=== PATIENT | female | born 1945 | race African-American/Black ===

== ENCOUNTER → 2018-05-02 | Outpatient (CLI) | payer BC ==
--- NOTE | 2018-05-02 15:26 | KCIC ---
MRI of the lumbar spine without contrast 05/02/2018 CLINICAL HISTORY: Low back pain which radiates down the right hip and right leg. TECHNIQUE: Unenhanced T1-weighted and T2-weighted sagittal and axial and inversion recovery sagittal images of the lumbar spine were obtained. FINDINGS: Mild anterolisthesis of L5 in relation to S1 is noted. Degenerative signal changes are seen involving all of the disks of the lumbar spine. Degenerative signal changes are seen within the marrow surrounding these discs. The conus medullaris is normal morphology, position, and signal characteristics. A 1 cm high signal intensity lesion is seen involving the lower pole of the right kidney on the T2-weighted images. This likely represents a cyst. At the L1-2, L2-3 and L3-4 disc spaces there are minimal to mild generalized disc bulges. Degenerative changes are seen involving the facet joints bilaterally. There is mild ligamentum flavum hypertrophy bilaterally. These findings do not result in significant central spinal canal or neural foraminal stenosis. At the L4-5 disc space there is a mild generalized disc bulge. This is eccentric to the left. Degenerative changes are seen involving the facet joints bilaterally. There is moderate ligamentum flavum hypertrophy bilaterally. There is prominence of the posterior epidural fat. These findings when combined result in mild central spinal canal stenosis. No neural foraminal stenosis is seen. At the L5-S1 disc space there is a mild to moderate generalized disc bulge. Superimposed on this disc bulge is a right lateral focal disc herniation. This measures 6 mm in AP diameter. Degenerative changes are seen involving the facet joints bilaterally. There are moderate facet joint effusions bilaterally. Moderate ligamentum flavum hypertrophy is seen. These findings when combined do not result in significant central spinal canal stenosis. Mild left neural foraminal stenosis is seen. Moderate to severe right neural foraminal stenosis is seen. The disc herniation appears to impinge to some degree upon the right L5 nerve root within the right neural foramen. IMPRESSION: The changes of degenerative disc disease are seen involving the lumbar spine. These findings result in mild central spinal canal stenosis at L4-5. Mild left neural foraminal stenosis is seen at L5-S1. Moderate to severe right neural foraminal stenosis is seen at L5-S1. A right lateral focal disc herniation is seen at L5-S1 which appears to impinge to some degree upon the right L5 nerve root within the right neural foramen. Electronically signed by: Lukas Cornell MD (05/02/2018 3:23 PM) [id number]
== END | disposition home or self-care (01) ==
LOC: KCIC MRI 13:25
PROVIDERS: ATTEND Orthopaedic Surgery
DX: M51.36 Other intervertebral disc degeneration, lumbar region (principal); M48.061 Spinal stenosis, lumbar region without neurogenic claudication; M48.07 Spinal stenosis, lumbosacral region; M51.27 Other intervertebral disc displacement, lumbosacral region; M25.48 Effusion, other site
CPT/HCPCS: 72148